=== PATIENT | female | born 1985 | race Two or more races ===

== ENCOUNTER 2020-02-19 13:32 | Emergency (ER) | payer SELFPAY ==
[~2020-02-19] VITALS: Ht 177.8 cm; Wt 95.7 kg
[2020-02-19] MEDS ORDERED: HYDROcodone-ACET 10/325MG TAB PO ONE (14:00)
[2020-02-19 16:41] LABS: Urine Bacteria FEW /hpf (None Seen); Urine Blood 3+ /uL (Negative); Urine Mucus FEW (None Seen); Urine Specific Gravity 1.017 (1.001-1.035); Urine WBC 19 /hpf (0 - 5)
[2020-02-19 17:30] VITALS: BP 148/88
== END 2020-02-19 17:46 | disposition home or self-care (01) ==
LOC: ER 13:32
DX: N39.0 Urinary tract infection, site not specified (principal); N93.9 Abnormal uterine and vaginal bleeding, unspecified
CPT/HCPCS: 81001

== ENCOUNTER 2020-02-20 16:17 | Emergency (ER) | payer SELFPAY ==
[~2020-02-20] VITALS: Ht 177.8 cm; Wt 95.7 kg
[2020-02-20] MEDS ORDERED: SODIUM CHLORIDE 0.9% 1,000 ML IVB ONE (16:50)
[2020-02-20] MEDS ORDERED: MORPHINE SULFATE 4 MG/ML SYR/VIAL IV ONE (17:00)
[2020-02-20] MEDS ORDERED: cefTRIAXone 1GM/50ML D5W 50 ML IV ONE (17:00)
[2020-02-20] MEDS ORDERED: ONDANSETRON HCL 4 MG/2 ML VIAL IV ONE (17:00)
[2020-02-20 17:54] LABS: Basophils # (auto) 0.1 10 ^3/uL (0-0.2); Eosinophils # (auto) 0.1 10 ^3/uL (0-0.8); Mean Corpuscular Volume 76.8 fL (80.0-100.0)
[2020-02-20 17:55] VITALS: BP 143/78
[2020-02-20 17:57] LABS: Basophils % (auto) 0.9 % (0.0-2.0); Eosinophils % (auto) 0.9 % (0.0-7.0); Hematocrit 38.7 % (36.0-46.0); Hemoglobin 12.9 g/dL (12.2-16.2); Lymphocytes # (auto) 2.1 10 ^3/uL (0.4-5.4); Lymphocytes % (auto) 21.9 % (10.0-50.0); Mean Corpuscular Hemoglobin 25.7 pg (28.0-32.0); Mean Corpuscular Hgb Conc. 33.4 g/dL (32.0-36.0); Monocytes # (auto) 0.6 10 ^3/uL (0-1.3); Monocytes % (auto) 6.1 % (0.0-12.0); Neutrophils # (auto) 6.6 10 ^3/uL (1.6-8.6); Neutrophils % (auto) 70.2 % (37.0-80.0); Nucleated Red Blood Cells % 0.2 %; Platelet Count (auto) 444 10^3/uL (140-450); Red Blood Cells 5.03 10^6/uL (4.0-5.20); Red Cell Distribution Width 14.6 % (11.8-14.3); White Blood Cell 9.4 10^3/uL (4.4-10.8)
[2020-02-20 18:14] LABS: Calcium 9.2 mg/dL (8.5-10.1); Potassium 3.3 mmol/L (3.5-5.1)
[2020-02-20 18:19] LABS: BUN/Creatinine Ratio 9.6; Bilirubin, Total 0.7 mg/dL (0.2-1.0); Total Protein 8.4 g/dL (6.4-8.2)
== END 2020-02-20 18:50 | disposition home or self-care (01) ==
LOC: ER 16:17
DX: M54.5 Low back pain (principal); N39.0 Urinary tract infection, site not specified
CPT/HCPCS: 36415; 74176; 80053; 85025; 96365; 96375; 99284; J0696; J2270; J2405; J7030

== ENCOUNTER 2020-02-21 13:19 | Emergency (ER) | payer OTHER ==
[~2020-02-21] VITALS: Ht 177.8 cm; Wt 95.7 kg
[2020-02-21 14:27] LABS: Basophils # (auto) 0.1 10 ^3/uL (0-0.2); Eosinophils # (auto) 0.1 10 ^3/uL (0-0.8); Lymphocytes # (auto) 1.7 10 ^3/uL (0.4-5.4); Lymphocytes % (auto) 21.3 % (10.0-50.0); Monocytes # (auto) 0.5 10 ^3/uL (0-1.3)
[2020-02-21 14:29] LABS: Basophils % (auto) 0.8 % (0.0-2.0); Hematocrit 38.4 % (36.0-46.0); Hemoglobin 12.6 g/dL (12.2-16.2); Mean Corpuscular Hemoglobin 25.3 pg (28.0-32.0); Mean Corpuscular Hgb Conc. 32.9 g/dL (32.0-36.0); Mean Corpuscular Volume 76.9 fL (80.0-100.0); Monocytes % (auto) 6.5 % (0.0-12.0); Neutrophils # (auto) 5.6 10 ^3/uL (1.6-8.6); Neutrophils % (auto) 70.4 % (37.0-80.0); Platelet Count (auto) 482 10^3/uL (140-450); Red Blood Cells 4.99 10^6/uL (4.0-5.20); Red Cell Distribution Width 15.1 % (11.8-14.3)
[2020-02-21 14:52] LABS: Albumin 3.9 g/dL (3.4-5.0); Calcium 9.1 mg/dL (8.5-10.1); Potassium 3.2 mmol/L (3.5-5.1)
[2020-02-21 14:56] LABS: BUN/Creatinine Ratio 6.9; Bilirubin, Total 0.6 mg/dL (0.2-1.0); Total Protein 8.3 g/dL (6.4-8.2)
[2020-02-21 15:15] LABS: Urine Bacteria NONE SEEN /hpf (None Seen); Urine Blood 3+ /uL (Negative); Urine Mucus FEW (None Seen); Urine Specific Gravity 1.016 (1.001-1.035); Urine WBC 143 /hpf (0 - 5)
[2020-02-21] MEDS ORDERED: cefTRIAXone 1GM/50ML D5W 50 ML IV ONE (15:30)
[2020-02-21] MEDS ORDERED: KETOROLAC TROMETH 30 MG/ML 1ML VIAL IV ONE (15:30)
[2020-02-21] MEDS ORDERED: SODIUM CHLORIDE 0.9% 1,000 ML IV ONE (15:30)
[2020-02-21] MEDS ORDERED: POTASSIUM CHL 20 Meq TABLET PO ONE (15:30)
[2020-02-21 17:37] VITALS: BP 147/81
[2020-02-21 22:01] LABS: Amphetamine Screen, Urine NEGATIVE (NEGATIVE); Barbiturate Scree,Urine NEGATIVE (NEGATIVE); Benzodiazephine Screen, Urine NEGATIVE (NEGATIVE); Cannabinoid Screen, Urine NEGATIVE (NEGATIVE); Cocaine Screen, Urine NEGATIVE (NEGATIVE); Opiate Scree,Urine NEGATIVE (NEGATIVE); Phencyclidine Screen, Urine NEGATIVE (NEGATIVE)
== END 2020-02-21 17:41 | disposition home or self-care (01) ==
LOC: ER 13:19
DX: S39.012A Strain of muscle, fascia and tendon of lower back, initial encounter (principal); N93.9 Abnormal uterine and vaginal bleeding, unspecified; N39.0 Urinary tract infection, site not specified; M48.061 Spinal stenosis, lumbar region without neurogenic claudication; M51.36 Other intervertebral disc degeneration, lumbar region; E87.6 Hypokalemia; R73.9 Hyperglycemia, unspecified; X58.XXXA Exposure to other specified factors, initial encounter; Y93.89 Activity, other specified; Y92.89 Other specified places as the place of occurrence of the external cause; Y99.8 Other external cause status
CPT/HCPCS: 36415; 76830; 76856; 80053; 80307; 81001; 81025; 82962; 85025; 96365; 96375; 99284; J0696; J1885